=== PATIENT | female | born 1990 | race Caucasian/White ===

== ENCOUNTER 2016-06-25 15:30 | Emergency (ER) | payer BC, OTHER ==
[~2016-06-25] VITALS: Wt 80.0 kg
[~2016-06-25 15:30] MED LIST: PRENAT PO
[2016-06-25] MEDS ORDERED: IBUP-1542 PO (16:33)
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
[2016-06-25] MEDS ORDERED: IBUPROFEN 800 MG TAB PO ONE (17:00)
== END 2016-06-25 17:18 | disposition home or self-care (01) ==
LOC: FTE 15:30
DX: S39.92XA Unspecified injury of lower back, initial encounter (principal); S49.91XA Unspecified injury of right shoulder and upper arm, initial encounter; S09.93XA Unspecified injury of face, initial encounter; V43.52XA Car driver injured in collision with other type car in traffic accident, initial encounter
CPT/HCPCS: 99283

== ENCOUNTER 2016-08-21 23:26 | Emergency (ER) | payer OTHER ==
[~2016-08-21] VITALS: Ht 160 cm; Wt 78.0 kg
[~2016-08-21 23:26] MED LIST changes: +IBUP-1542 PO
[2016-08-21 23:29] VITALS: Ht 160 cm; Wt 78.0 kg
--- NOTE | 2016-08-22 00:45 | ERD ---
ER Documentation Chief Complaint Date/Time DATE: 08/22/16 TIME: 00:31 Chief Complaint left middle finger abscess HPI 26-year-old female presents to emergency department for complaints of left middle finger redness and swelling surrounding the nail, complaining of pain sharp 6/10 scale, is worse upon touching the area. Patient denies any trauma and affected area. Patient denies any fever or chills. ROS All systems reviewed and are negative except as per history of present illness. Medications Home Meds Active Scripts Ibuprofen* (Motrin*) 600 Mg Tab, 600 MG PO Q6H Y for PAIN AND OR ELEVATED TEMP, #30 TAB Prov:RICKIE MURPHY MD 06/25/16 Reported Medications Multivit/Min/Fol Ac/Iron/Pren* ( S*) 1 Tab Tab, 1 TAB PO DAILY, TAB 03/03/14 Allergies Allergies: Coded Allergies: No Known Allergy (Unverified , 03/03/14) PMhx/Soc Medical and Surgical Hx: pt denies Medical Hx, pt denies Surgical Hx History of Surgery: No (DENIES MEDICAL AND SURGICAL HX.) Anesthesia Reaction: No Hx Neurological Disorder: No Hx Respiratory Disorders: No Hx Cardiac Disorders: No Hx Psychiatric Problems: No Hx Miscellaneous Medical Probl: No Hx Alcohol Use: Yes (SOCIALLY) Hx Substance Use: No Hx Tobacco Use: No FmHx Family History: No coronary disease, No diabetes, No other Physical Exam Vitals Vital Signs Date Time Temp Pulse Resp B/P Pulse Ox O2 Delivery O2 Flow Rate FiO2 08/21/16 23:29 97.8 95 20 132/87 100 Physical Exam GENERAL: The patient is well developed and appropriate for usual state of health, in no apparent distress. CHEST: Clear to auscultation bilaterally. There are no rales, wheezes or rhonchi. HEART: Regular rate and rhythm. No murmurs, clicks, rubs or gallops. No S3 or S4. ABDOMEN: Soft, nontender and nondistended. Good bowel sounds. No rebound or guarding. No gross peritonitis. No gross organomegaly or masses. No Longoria sign or McBurney point tenderness. BACK: No midline or flank tenderness. EXTREMITIES: Equal pulses bilaterally. There is no peripheral clubbing, cyanosis or edema. No focal swelling or erythema. Full range of motion. Grossly neurovascularly intact. NEURO: Alert and oriented. Cranial nerves 2-12 intact. Motor strength in all 4 extremities with 5/5 strength. Sensation grossly intact. Normal speech and gait. SKIN: noted redness surrounding the left third finger and fluctuance, tenderness on palpation. There is no apparent rash or petechia. The skin is warm and dry. HEMATOLOGIC AND LYMPHATIC: There is no evidence of excessive bruising or lymphedema. No gross cervical, axillary, or inguinal lymphadenopathy. Procedures/MDM Procedure Note: After obtaining informed consent, the wound was irrigated with 250 ml of normal saline and cleaned with diluted betadine. A small incision was done in the base of the nailbed where the fluctuance noted. Pustular discharge was drained from the abscess. The abscess wound was loosely packed with iodoform dressing. After the procedure, dry dressing was applied on the area. Patient tolerated procedure well. Medical decision-making: Patient symptoms is that is consistent with paronychia. No symptoms of any neurovascular compromise. No symptoms of sepsis at this time. Patient appears well and hemodynamically stable. Prescription was given for Bactrim, Keflex, ibuprofen and [place], is advised to follow-up with primary care doctor in 2 days for reevaluation of symptoms. Patient is advised to return to emergency department for any worsening symptoms. Departure Diagnosis: Primary Impression: Paronychia Laterality: left Qualified Code: L03.012 - Paronychia, left Condition: Stable Patient Instructions: Paronychia Additional Instructions: Prescription was given for Bactrim, Keflex, ibuprofen and [place], is advised to follow-up with primary care doctor in 2 days for reevaluation of symptoms. Patient is advised to return to emergency department for any worsening symptoms. PERI THOMASON NP August 22, 2016 00:43
[2016-08-22] MEDS ORDERED: IBUP-1542 PO (01:13)
[2016-08-22] MEDS ORDERED: SULF1TAB31 PO (01:13)
[2016-08-22] MEDS ORDERED: CEPH-443 PO (01:13)
[2016-08-22] MEDS ORDERED: HYDR-906 PO (01:13)
[2016-08-22 01:35] VITALS: BP 132/87; RESP 20; TEMP 98
== END 2016-08-22 01:47 | disposition home or self-care (01) ==
LOC: FTE 23:26
DX: L03.012 Cellulitis of left finger (principal)